=== PATIENT | male | born 1970 | race Caucasian/White ===

== ENCOUNTER 2020-07-26 18:16 | Emergency (ER) | payer BC ==
[~2020-07-26] VITALS: Ht 182.9 cm; Wt 109.1 kg
[2020-07-26] MEDS ORDERED: LEVO137T2 (18:23)
[2020-07-26] MEDS ORDERED: D31000TA2 PO (18:23)
[2020-07-26] MEDS ORDERED: ZYRTTAB8 PO (18:23)
[2020-07-26] MEDS ORDERED: FENO145T7 (18:23)
[2020-07-26 21:51] VITALS: BP 150/92
== END 2020-07-26 21:53 | disposition home or self-care (01) ==
LOC: M ED 18:16
DX: J00 Acute nasopharyngitis [common cold] (principal); Z11.52 Encounter for screening for COVID-19; E03.9 Hypothyroidism, unspecified; E78.5 Hyperlipidemia, unspecified; Z88.8 Allergy status to other drugs, medicaments and biological substances; Z79.899 Other long term (current) drug therapy; Z79.890 Hormone replacement therapy

== ENCOUNTER → 2021-02-10 | Outpatient (CLI) | payer BC ==
[~2021-02-10] MED LIST: D31000TA2 PO; FENO145T7; LEVO137T2; ZYRTTAB8 PO
--- NOTE | 2021-02-11 16:31 | SLEEPCENT ---
DATE: 02/10/2021 ORDERED BY: MIGUEL ANGEL Thomas Nocturnal polysomnography was performed for evaluation of sleep physiology in this patient with a history of excessive somnolence and nonrestorative sleep. Eight hours and 24 minutes of data were reviewed. There were 458.5 minutes of sleep identified. Sleep latency was normal at 12.5 minutes. REM sleep was delayed at 258 minutes. Sleep architecture was fragmented early in the study. Improvement was seen later in the test and there were three REM cycles. Overall sleep efficiency was 91.8%. The electrocardiogram showed a sinus rhythm with an average heart rate of 68 beats per minute. EEG showed normal waveforms for wake and sleep. There were 105 respiratory events identified of 10 seconds in duration or greater for an apnea-hypopnea index of 13.7. The events were obstructive, not exclusive to sleep stage nor position. Arousals from respiratory events occurred 3.8 times per hour, and oxygen desaturations were seen below 90%. There was some activity in the EMG leads. Limb movement arousal index was only 2.6. IMPRESSION: Obstructive sleep apnea syndrome (G47.33). Apnea-hypopnea index 13.7. RECOMMENDATION: The patient should be encouraged to return to [facility] for [facility]. In the interim, alcohol and sedative avoidance should be practiced and caution exercised during the operation of motor vehicles. cc: Dr. Buchanan
== END ==
LOC: M SLEEP 20:00
PROVIDERS: ATTEND Physician Assistant
DX: G47.33 Obstructive sleep apnea (adult) (pediatric) (principal)

== ENCOUNTER → 2021-04-28 | Outpatient (CLI) | payer BC | LOC: M SLEEP 20:00 | PROVIDERS: ATTEND Physician Assistant | DX: G47.33 Obstructive sleep apnea (adult) (pediatric) (principal) ==